=== PATIENT | female | born 1990 | race Two or more races ===

== ENCOUNTER 2023-07-08 18:11 | Emergency (ER) | payer OTHER ==
[~2023-07-08] VITALS: Ht 172.7 cm; Wt 108.9 kg
[2023-07-08] MEDS ORDERED: CARVEDILOL12.5 MG (18:55)
[2023-07-08] MEDS ORDERED: COZAAR100 MG (18:55)
== END 2023-07-08 20:10 | disposition home or self-care (01) ==
LOC: ER 18:11
DX: R07.89 Other chest pain (principal); I10 Essential (primary) hypertension